=== PATIENT | male | born 1960 | race Caucasian/White ===

== ENCOUNTER → 2021-01-30 13:26 | Outpatient (CLI) | payer OTHER, SELFPAY ==
--- NOTE | ~2021-01-30 | XR_ITS ---
XR hip LT min 2V 01/30/2021 13:56 Indication: Left hip pain Procedure: 2 views left hip Comparison: No prior studies for comparison. Findings: There is severe osteoarthritis of the left hip with remodeling of the femoral head. There a re subchondral cyst formation and marginal osteophytosis. No fracture or traumatic malalignment. Impression: 1: Severe osteoarthritis of the left hip. Reviewed, dictated and finalized at location B. Impression: 1: Severe osteoarthritis of the left hip.
--- NOTE | ~2021-01-30 | XR_ITS ---
XR knee LT min 4V 01/30/2021 13:56 Indication: Left hip pain Procedure: 4 views left knee Comparison: No prior studies for comparison. Findings: Moderate tricompartment osteoarthritis of the left knee. No significant soft tissue abnorma lity. No joint effusion. No lytic or blastic lesions. Impression: 1: Moderate osteoarthritis of the left knee. Reviewed, dictated and finalized at location B. Impression: 1: Moderate osteoarthritis of the left knee.
== END ==
PROVIDERS: PCP Family Medicine Adolescent Medicine; Visit Provider Family Medicine Adolescent Medicine
DX: M16.12 Unilateral primary osteoarthritis, left hip (principal)
CPT/HCPCS: 73502; 73564

== ENCOUNTER 2021-12-02 11:51 | Outpatient (CLI) | payer OTHER, SELFPAY ==
--- NOTE | 2021-12-02 13:16 | ECG_ITS ---
Measurements Intervals [place] Rate: 85 P: 21 PA: 136 QRS: 13 QRSD: 96 T: 26 QT: 363 QTc: 432 Interpretive Statements SINUS RHYTHM WITH SINUS ARRHYTHMIA NORMAL ECG NO PREVIOUS ECG AVAILABLE FOR COMPARISON Electronically Signed On 12-02-2021 14:12:18 COVER MAKING MACHINE OPERATOR by Kieran Angelo M.D.
[2021-12-02 13:50] LABS: Basophils Percent Auto 0.7 % (0.2-1.2); Eosinophils Absolute Auto 0.2 K/mm3 (0-0.3); Eosinophils Percent Auto 3.4 % (0-4.4); Hematocrit 44.2 % (42.0-52.0); Hemoglobin 15.3 g/dL (14.0-18.0); Immature Granulocyte Absolute 0.02 K/mm3 (0.00-0.031); Immature Granulocyte Percent A 0.4 % (0-0.5); Lymphocytes Absolute Auto 1.35 K/mm3 (0.9-3.2); Lymphocytes Percent Auto 30.3 % (18.3-44.2); Mean Corpuscular HGB Conc 34.6 g/dl (32-36); Mean Corpuscular Hemoglobin 30.5 pg (26-34); Mean Platelet Volume 10.1 fl (7.4-10.4); Monocytes Absolute Auto 0.5 K/mm3 (0.1-0.6); Monocytes Percent Auto 10.3 % (2.6-8.5); Neutrophils Absolute Auto 2.4 K/mm3 (1.3-6.7); Neutrophils Percent Auto 54.9 % (45.5-73.1); Platelet Count Result 191 k/mm3 (150-375); Red Blood Count 5.02 M/mm3 (4.6-6.20); Red Cell Distribution Width 11.8 % (11.5-14.5); White Blood Count 4.5 K/mm3 (4.5-10.0)
[2021-12-02 13:59] LABS: Albumin Level 4.7 g/dL (3.5-5.1); Anion Gap 10 mmol/L (8-16); Blood Urea Nitrogen 20 mg/dL (9-20); Carbon Dioxide 25 mmol/L (22-30); Chloride 105 mmol/L (98-107); Estimated Glomerular Filt Rate > 60; Glucose 109 mg/dL (65-110); Potassium 4.4 mmol/L (3.4-5.0); Sodium 140 mmol/L (137-145)
[2021-12-02 14:21] LABS: Urine Cotinine NEGATIVE
[2021-12-02 14:42] LABS: Hemoglobin A1C 5.5 % (<5.7)
== END 2021-12-02 11:52 | disposition home or self-care (01) ==
LOC: ANHSURGERY 11:54
PROVIDERS: PCP Family Medicine Adolescent Medicine; Visit Provider Orthopaedic Surgery
DX: M16.12 Unilateral primary osteoarthritis, left hip (principal); Z01.818 Encounter for other preprocedural examination
CPT/HCPCS: 80048; 80307; 82040; 83036; 85025; 87070; 93005

== ENCOUNTER 2021-12-21 00:49 | Day surgery (SDC) | payer OTHER, SELFPAY ==
[2021-12-02 12:26] VITALS: BP 120/72; PULSE 88; RESP 18; TEMP 36.8; O2SAT 98; BMI 36.0
--- NOTE | 2021-12-02 12:44 | PC.NURSE ---
Report to the Outpatient Waiting Room, entrance under the green pavilion located off [facility], at time __6:00AM on date _12/21/21 . OR Time: __7:30AM . - You and your visitor will be asked a series of questions to screen for COVID 19 for your protection. - A mask is required within the hospital. Preoperative COVID Testing Requirements: No COVID Test needed if: (proof is required; if not received patient will have Rapid Test prior to entry) - Patient has received COVID Vaccine at least 14 days prior to procedure date or - Patient has positive COVID test result within last 90 days of surgery date. COVID Test needed if above criteria is not met If not COVID vaccinated a COVID test must be conducted within 72 hours of surgery and patient is asked to isolate self from time of testing until procedure. You will go to the [facility] for your COVID testing. The [facility] site is located at the corner of [address] [facility]. You will only be called if COVID results are positive and your surgeon may reschedule your elective surgery date. Patients may have clear liquids (water, carbonated beverages, clear teas, apple juice) until 3 hours prior to surgery with a maximum of 20 ounces. - No food from midnight until time of surgery - Infants may have breast milk until 4 hours before surgery, formula 6 hours prior to surgery. - Children will be allowed to drink immediately following surgery. If applicable, please bring a bottle or sippy cup to assist with drinking. Juice, water, soda, and popsicles are readily available. For infants on formula, please bring formula the day of surgery. Pacifiers are allowed. Take the following medications with a SIP of water the morning of surgery: ___NONE Medications to discontinue per physician COUMADIN 5 DAYS PRE-OP, 12/16/21, ALL VITAMINS/SUPPLEMENTS 3 DAYS PRE-OP, 12/18/21 Date to take last dose Please no make-up, nail [facility], hairspray, perfume, deodorant, or body powder the day of surgery. No jewelry (including any body piercings) or valuables the day of surgery, leave them at home. Please take a shower or bath the night before, or the morning of, surgery with an antibacterial soap. Wear comfortable, loose fitting clothing. Children are encouraged to wear pajamas. - Jewelry must be removed prior to entering the operating room. Rings and piercings that are not removed may be cut off. - The hospital will not accept responsibility for valuables. - Please leave all valuables, including medications, at home the day of surgery. If you are going home after surgery, a licensed deliver driver must drive you home. - NO public transportation without another adult. - We recommend that an adult stay with you for 24 hours following discharge. - We also recommend that you do not drive, make important decision, drink alcoholic beverages, or take any drugs that were not prescribed by your health care provider for at least 24 hours after your discharge time. For Pediatric surgeries, we recommend two adults accompany the child home (only one inside the building at this time). One visitor will be allowed to accompany the patient into the hospital. Patients visitor will be instructed to remain with patient at all times or leave the building. We will allow the visitor to come back to the postoperative area when patient is ready. Follow any additional instructions given to you from your surgeon. Telephone instructions given to ___PATIENT and asked if any additional questions and then verbalized understanding. Patient advised to call surgeon office or pre surgery nurse liaison [phone] if any additional questions.
--- NOTE | 2021-12-18 10:09 | PM.IMHP ---
H&P: HPI History of Present Illness Date/Time: 12/18/21 10:09 61-year-old male patient of Dr. Davis who presents today for a left total hip arthroplasty anterior approach. He has been having pain in his hip for years. It has progressively been worsening. Most the pain is in the anterior lateral. He has had to put off hip replacement surgery due to being overweight. Also he had a spontaneous DVT and bilateral pulmonary embolus in March 2021. at this point patient has gotten his weight down so that his BMI is under 40. it is also felt that he is far enough out from his spontaneous pulmonary embolus and DVT that it would be safe to do surgery at this point. Patient has advanced type 1 arthritis in the left hip with flattening of the femoral head and pronounced cystic changes in the femoral head as well as acetabulum. Chief Complaint: Left hip DJD Review of Systems Review of Systems: All systems reviewed & are unremarkable except as noted in HPI and below PMFSH Past Medical History Medical History Deep vein thrombosis 03/23 History of pulmonary embolism History of pulmonary embolism Pulmonary embolism 03/23 Family History Family History Father Acute myocardial infarction Age 70 Heart disease Mother Breast cancer Sibling Heart disease Other Depression Hypertension Social History Social History Smoking status: Never smoker Second hand tobacco smoke exposure: No Alcohol intake: never Substance use: never Substance use type: does not use Gender identity (if verbalized by the patient): Male Sexual Orientation (if Verbalized by the Patient): Straight or Heterosexual Spiritual care concerns: No Agree to blood products: Yes Meds Home Medications and Allergies Home Medications Medication Instructions Recorded Confirmed Type celecoxib 200 mg capsule 200 mg PO DAILY 11/02/21 12/02/21 History clonazepam 1 mg tablet 1 mg PO BID 11/02/21 12/02/21 History lisinopril 10 mg tablet 10 mg PO QAM 11/02/21 12/02/21 History warfarin 5 mg tablet 7.5 mg PO QPM tablet 11/02/21 12/02/21 History acetaminophen 500 mg PO Q6H PRN 12/02/21 12/02/21 History cholecalciferol (vitamin D3) 50 mcg PO DAILY 12/02/21 12/02/21 History hydrocodone-acetaminophen 1 tablet PO TID PRN 12/02/21 12/02/21 History triamcinolone acetonide 1 applic TOPICAL BID PRN 12/02/21 12/02/21 History Allergies Allergy/AdvReac Type Severity Reaction Status Date / Time No Known Allergies Allergy Unverified 12/02/21 12:11 Exam Narrative: 61-year-old male alert pleasant. He is 5 ft 9 and 249 lb his BMI is 36.8. His left hip range of motion is from 10-80 degrees. His rotation is fixed at 10? of external rotation. Any range of motion causes him anterior lateral hip pain. Stinchfield maneuver causes him the same moderately severe anterior lateral hip pain. He has normal abduction strength in lateral position. No tenderness over the greater trochanter. 2+ dorsalis pedis and posterior artery pulse. Normal sensation. No edema in either lower extremity. Does walk with a pronounced limp. Resp: Auscultation: clear to auscultation bilaterally Cardio: Rate: regular rate Rhythm: regular rhythm Assessment and Plan Additional Plan 61-year-old male who has severe arthritis of left hip with rather severe symptoms on a daily basis. Patient feels ready to proceed with total hip arthroplasty. Surgical procedure as well as the risks and complications were discussed in detail all questions were answered and we will proceed. Patient will see Dr. bhaskar zaldivar for pre-surgical clearance. Patient has seen a a auxiliary who has recommended the patient stop his Coumadin 1 week prior to surgery and then use bridging Lovenox. We will resume his Coumadin postoperatively as well as bridge i
[2021-12-21] VITALS (16 sets, daily range): BP systolic 97–133; BP diastolic 53–79; PULSE 61–104; RESP 14–20; TEMP 36–36.6; O2SAT 95–100
--- NOTE | ~2021-12-21 | XR_ITS ---
. EXAMINATION: XR surgery orthopedic DATE: 12/21/2021 11:10 INDICATION: Intraoperative evaluation during left total hip arthroplasty TECHNIQUE: Frontal view of the left hip was obtained. COMPARISON: None. FINDINGS: Intraoperative image during a left total hip arthroplasty demonstrate placement of an acetabular comp onent which is fixed with at least a single screw. Subsequent images demonstrate completion of the ar throplasty with placement of a noncemented femoral component. Portions of the pelvis are excluded fro m the [id number]. No fractures in the visualized bones. Expected postoperative gas in the surround ing soft tissues. IMPRESSION: 1. Expected appearance during left total hip arthroplasty. Reviewed, dictated and finalized at location A.
--- NOTE | ~2021-12-21 | XR_ITS ---
EXAMINATION: XR hip LT 1V w AP pelvis DATE: 12/21/2021 11:31 INDICATION: Postoperative evaluation following left total hip arthroplasty TECHNIQUE: Anteroposterior and lateral views of the left hip were obtained. COMPARISON: Intraoperative radiograph dated 12/21/2021 FINDINGS: Interval placement of a left total hip arthroplasty which appears well seated in near anatomic alignm ent. At least moderate right hip osteoarthritis. Surgical drain and expected subcutaneous gas in the postoperative bed. No fractures identified. IMPRESSION: 1. Left total hip arthroplasty, negative for postoperative purposes. Reviewed, dictated and finalized at location A.
[2021-12-21] MEDS: ACETAMINOPHEN 500 MG TABLET 1000 MG PO ×2 (06:25→17:50)
[2021-12-21] MEDS: LACTATED RINGERS 1,000 ML 30 ML IV CONT ×2 (06:45→11:37)
[2021-12-21 06:54] LABS: INR 1.1; Partial Thromboplastin Time 25.8 SECONDS (22.3-36.8); Prothrombin Time 13.5 Seconds (11.1-14.7)
[2021-12-21] MEDS: TRANEXAMIC ACID 1,000MG/ISO100 1,000 MG/100 ML BAG 200 MG IVPB (06:59)
--- NOTE | 2021-12-21 07:14 | WPDHPUPDATE1 ---
History and Physical Update Update Date/Time: 12/21/21 07:14 History and Physical has been reviewed, including an updated exam of the patient. There are NO changes in the patient's condition. Risks, benefits, and alternatives have been discussed and questions answered. Patient agrees to proceed with procedure.
--- NOTE | 2021-12-21 07:22 | WPDANESEPPF ---
Anes - Initial Pre Proc Eval Procedure: Operation Date: 12/21/21 07:30 Proposed Procedures p Left Total Hip Arthroplasty Anterior Approach - Von Alarcon MD Date/Time: 12/21/21 07:22 Surgeon: Von Alarcon MD Pre Op Diagnosis: oa left hip Patient Data Age: 61 Gender: M Height: 1.77 m Weight: 111 kg Last Vital Signs Temp 97.3 F L 12/21/21 06:44 Pulse 84 12/21/21 06:44 Resp 16 12/21/21 06:44 BP 124/79 12/21/21 06:44 Pulse Ox 99 12/21/21 06:44 Allergies Allergy/AdvReac Type Severity Reaction Status Date / Time No Known Allergies Allergy Unverified 12/21/21 06:03 Home Medications Medication Instructions Recorded Confirmed Type celecoxib 200 mg capsule 200 mg PO DAILY 11/02/21 12/21/21 History clonazepam 1 mg tablet 1 mg PO BID 11/02/21 12/21/21 History lisinopril 10 mg tablet 10 mg PO QAM 11/02/21 12/21/21 History warfarin 5 mg tablet 7.5 mg PO QPM tablet 11/02/21 12/21/21 History acetaminophen 500 mg PO Q6H PRN 12/02/21 12/21/21 History cholecalciferol (vitamin D3) 50 mcg PO DAILY 12/02/21 12/21/21 History hydrocodone-acetaminophen 1 tablet PO TID PRN 12/02/21 12/21/21 History triamcinolone acetonide 1 applic TOPICAL BID PRN 12/02/21 12/21/21 History enoxaparin 150 mg SUBCUT QAM 12/21/21 12/21/21 History Laboratory Tests 12/21/21 12/21/21 06:38 06:38 PT 13.5 Seconds Seconds (11.1-14.7) INR 1.1 APTT 25.8 SECONDS SECONDS (22.3-36.8) Blood Type A Positive Antibody Screen Pending Patient hx anesthesia problems: none Family hx anesthesia problems: none Results Review: All pre-operative results and documents have been reviewed as part of the pre-operative evaluation. [facility] Past Medical History Medical History Deep vein thrombosis 03/23 History of pulmonary embolism History of pulmonary embolism Pulmonary embolism 03/23 Family History Family History Father Acute myocardial infarction Age 70 Heart disease Mother Breast cancer Sibling Heart disease Other Depression Hypertension Social History Social History Smoking status: Never smoker Second hand tobacco smoke exposure: No Alcohol intake: never Substance use: never Substance use type: does not use Living arrangements: alone Gender identity (if verbalized by the patient): Male Sexual Orientation (if Verbalized by the Patient): Straight or Heterosexual Spiritual care concerns: No Agree to blood products: Yes Anes - Eval Final PreProcedure Day of Procedure 12/21/21 07:22 Patient weight: obese Heart: regular rate and rhythm Lungs: clear to auscultation Airway: Mallampati scale class III Neurological: alert and oriented Last oral intake: >/= 8 hours ASA classification: III Emergent: no Anesthetic plan: proceed Anesthesia type and monitoring: general ETT and standard monitoring Results Review: All pre-operative results and documents have been reviewed as part of the pre-operative evaluation. Informed Consent: The patient's anesthetic plan and its attendant risks and benefits were discussed with the patient/family/POA. Questions were solicited and answers provided to the satisfaction of the patient/family/POA.
[2021-12-21] MEDS: ceFAZolin 2 GM/D5W 50 ML 2 GM/50 ML BAG IVPB (07:32)
[2021-12-21] MEDS: ceFAZolin SODIUM 1 GM VIAL 2 GM IV PUSH (11:00)
[2021-12-21] MEDS: TRANEXAMIC ACID 1,000 MG/10 ML AMPUL 1000 MG IV PUSH (11:04)
--- NOTE | 2021-12-21 11:54 | W.PM.PROC2 ---
Procedure Note - Detailed Date of Procedure 12/21/21 Pre-op Diagnosis oa left hip Post-op Diagnosis Same Procedure Performed Direct anterior approach left total hip arthroplasty Surgeon Von Alarcon MD Wastewater Supervisor Cain Anesthesia General Description of Procedure Patient brought to the operating room and general anesthesia was administered. He had his feet padded and the traction boots applied [facility] and the left hip prepped and draped usual fashion. We did use and 3 in silk tape on the abdomen to shift the pannus to the right little bit. His skin looks fine. He received 2 g of Ancef weight based vancomycin 1 g of tranexamic acid preoperatively. SCDs were applied to the calves and they were running throughout the procedure. A 11 cm longitudinal incision was made starting lateral to the ASIS about 2.5 cm lateral. Dissection was carried down the fascia of the tensor fascia azalia which was longitudinally incised elevated off the anterior 1/2 the TFL muscle. Interval between TFL and rectus femoris developed. Crossing branches of ascending lateral femoral circumflex vessels were identified and ligated with suture divided. The anterior capsule retractor was placed. The hip was abducted internally rotated the gluteus minimus elevated off the lateral capsule. Inverted T-shaped arthrotomy was utilized and a femoral neck osteotomy made according to preoperative templating. The femoral head measured 53.5 mm diameter. There was severe marginal osteophyte formation on the femoral head and around the acetabulum. The hip was externally rotated extended and the interval between conjoined tendon piriformis was incised which allowed the piriformis to flipped posteriorly and a little bit a recession of the conjoined tendon. With the leg back horizontal external rotation the acetabulum was exposed light traction applied. We medialized with a 44 Reamer and then reamed up gradually to a 53. The 53 trial fit nicely but the periphery of the shell was uncovered circumferentially and we reamed up to 55 mm which gave much more coverage circumferentially around the trial with a snug fit. We lightly reamed with the 56 at the periphery and impacted the 56 pinnacle cup which we were able to seat fully at 40? of abduction and proper anteversion. The shell was approximally flush with the posterior rim of the acetabulum and was will medial to a very large anterior inferior osteophyte. An excellent Press-Fit was achieved. We did place a screw in the ilium additionally and the 36 inner diameter liner was fully seated. The leg was externally rotated extended with the table hook elevating the femur and the femur broached to a size 5 which had just a tiny bit of wiggle. We trialed with the 8.5 head standard neck. This lengthened the leg a little more than our preoperative plan which was to lengthen the leg about 5 or 6 mm to restore the lost cartilage and bone loss due to wear. I could see that the 5 stem was undersized and we did not have enough offset. We broached up to a size 7 which was a very solid fit and we countersunk this about 3 more mm. On trialing the +5 neck was too loose. The 8.5 neck I felt was stable with a standard neck but it length and again a little bit more than I had planned and did not seem to restore adequate offset. We switched to the high offset neck trialed with the 1.5 head and this was too loose we trialed with the 5 head and this gave us appropriate stability with ample shock but no instability. This improved the leg length we were trying to achieve which I felt matched our preoperative plan well. We calcar planed the neck with a planer and saw and after confirming complete torsional stability of the broach we placed the Actis size 7 high offset stem which seated fully. We applied the 5 mm by 36 mm ceramic head on the clean and dried trunnion and the wound was again thoroughly irrigated with antibiotic solution and
[2021-12-21 11:55] LABS: Glucose Point of Care 157 mg/dl (65-105)
[2021-12-21] MEDS: fentaNYL CITRATE INJ (*CRX) 100 MCG/2 ML VIAL 25 MCG IV PUSH ×5 (11:59→12:47)
[2021-12-21] MEDS: PROPARACAINE HCL 0.5% 15 ML OPHTH SOLN 1 DROP EACH EYE (12:38)
[2021-12-21] MEDS: oxyCODONE HCL (*CRX) 5 MG TAB IR PO ×4 (13:32→22:17)
[2021-12-21] MEDS: ONDANSETRON INJ 4 MG/2 ML VIAL IV PUSH (13:32)
[2021-12-21] MEDS: SODIUM CHLORIDE 0.9% IV 1,000 ML 125 ML IV CONT (13:33)
--- NOTE | 2021-12-21 13:41 | ADMGEN ---
This patient, Albin Cohn, was admitted to Medical Room 244-01. Patient/family oriented to hospital policies and general routines including ID bracelet, bed and alarms, visiting hours, pain management, procedures, bathroom and other care routines, personal items, smoking policy, room service/diet, and visiting hours. Information on how to activate the Rapid Response Team has been discussed. Patient/Family are encouraged to report perceived risks to care and to ask questions if they do not understand what they are told or what they should do.
--- NOTE | 2021-12-21 13:49 | PCOTNOTE ---
Attempted OT evaluation, despite education on benefits of participating with therapy, patient reports feeling to weak right now to participate. Will attempt at later time, RN present.
--- NOTE | 2021-12-21 14:24 | PCPTNOTE ---
Attempted PT evaluation, despite education on benefits of participating with therapy, patient reports feeling to weak right now to participate. Will attempt at later time, RN present.
[2021-12-21] MEDS: SENNA/DOCUSATE SODIUM TABLET 2 TAB PO (16:28)
[2021-12-21] MEDS: DICLOFENAC SODIUM 0.1% OPHTH SOLN 2.5 ML BOTTLE 1 DROP EACH EYE ×2 (16:29→20:39)
--- NOTE | 2021-12-21 18:00 | WPDCN ---
Assessment and Plan Assessment and plan (1) Arthritis of left hip: Code(s): M16.12 - Unilateral primary osteoarthritis, left hip Status: Acute Assessment and Plan: Postoperative day 0 status post direct anterior approach left total hip arthroplasty. Check hemoglobin and hematocrit in the a.m. Wound care, pain control, and DVT prophylaxis will be deferred to Dr. Alarcon. (2) Essential (primary) hypertension: Code(s): I10 - Essential (primary) hypertension Status: Acute Assessment and Plan: Blood pressures were reviewed and they are stable postoperatively. Continue antihypertensives and monitor daily. (3) Type 2 diabetes mellitus: Code(s): E11.9 - Type 2 diabetes mellitus without complications Status: Acute Assessment and Plan: No longer on metformin after losing weight. Check fasting glucose and A1c in the morning. (4) Anxiety: Code(s): F41.9 - Anxiety disorder, unspecified Status: Acute Assessment and Plan: Continue clonazepam. (5) History of venous thromboembolism: Code(s): Z86.718 - Personal history of other venous thrombosis and embolism Status: Acute Assessment and Plan: The patient had DVT and pulmonary embolism in March 2021, of felt to be safe enough to be off of anticoagulation for this procedure. DVT prophylaxis deferred to primary service. (6) Nocturia: Code(s): R35.1 - Nocturia Status: Acute Assessment and Plan: Patient states he gets up almost every hour to urinate at nighttime. It sounds as though he drinks quite a bit of fluid prior to going to bed and we discussed limiting his fluid intake. Given his age she may be developing enlarged prostate and he was told to discuss this with his primary care provider. Postoperatively we will monitor his I/O closely to ensure there is no concerns for retention. Additional Plan Thank you for allowing us to participate in this patient's care. Please do not hesitate to contact us with any questions. Supervising physician for this medical consultation is Dr. Naeem Cole. HPI Data of Consult Date/Time: 12/21/21 18:00 Requesting Physician: Von Alarcon MD Primary Care Provider: Jas De Los Santos MD Reason for consult: Postoperative medical management. Consult Narrative Narrative: This is a 61-year-old male with history of arthritis, DVT and pulmonary embolism in summer 2020, diet-controlled diabetes, and hypertension whom the hospitalist service has been consulted for management of his medical conditions postoperatively. He has had longstanding pain in his left hip that has gotten progressively worse over the years. Despite losing weight and conservative outpatient treatment, his pain has persisted and thus he elected for replacement today. His surgery was performed under general anesthesia with no immediate complications documented and an estimated blood loss of 550 mL. At the time my evaluation he is resting comfortably and rates his pain 4/10. He denies paresthesias, skin color, temperature changes distal to the surgical site. He also denies postoperative fever, chills, chest pain, shortness breast, nausea, and vomiting. Review of Systems Review of Systems: Twelve systems were reviewed. No recent cold or flu symptoms. He denies cardiac and pulmonary disease. No exertional chest pain or shortness of breath. Denies history of sleep apnea or concerns for such. His most recent hemoglobin A1c was 4.9% per patient report and he has been off of metformin for quite some time. He does not check his glucose at home. He reports nocturia, getting up almost every hour at nighttime. Sometimes it takes him a bit to start his stream but he states that is with the same for says it is always been. He feels as though he is emptying his bladder completely. No dysuria,
[2021-12-21] MEDS: clonazePAM (*CRX) 0.5 MG TABLET 1 MG PO (20:35)
[2021-12-21] MEDS: ENOXAPARIN 30 MG/0.3 ML SYRINGE SUB-Q (20:38)
[2021-12-21] MEDS: FAMOTIDINE 20 MG TABLET PO (20:40)
[2021-12-22] MEDS: oxyCODONE HCL (*CRX) 5 MG TAB IR PO ×5 (00:36→14:13)
[2021-12-22] MEDS: ACETAMINOPHEN 500 MG TABLET 1000 MG PO ×3 (00:37→14:13)
[2021-12-22 03:52] VITALS: BP 114/66; PULSE 89; RESP 20; TEMP 36.2; O2SAT 99
[2021-12-22] MEDS: MORPHINE SULFATE (*CRX) 2 MG/ML INJ IV PUSH (05:13)
[2021-12-22] MEDS: DICLOFENAC SODIUM 0.1% OPHTH SOLN 2.5 ML BOTTLE 1 DROP EACH EYE ×2 (05:15→14:12)
[2021-12-22 05:56] LABS: Basophils Percent Auto 0.1 % (0.2-1.2); Eosinophils Percent Auto 0.1 % (0-4.4); Hematocrit 33.9 % (42.0-52.0); Hemoglobin 11.5 g/dL (14.0-18.0); Immature Granulocyte Absolute 0.06 K/mm3 (0.00-0.031); Immature Granulocyte Percent A 0.7 % (0-0.5); Lymphocytes Absolute Auto 0.81 K/mm3 (0.9-3.2); Lymphocytes Percent Auto 9.3 % (18.3-44.2); Mean Corpuscular HGB Conc 33.9 g/dl (32-36); Mean Corpuscular Hemoglobin 29.9 pg (26-34); Mean Corpuscular Volume 88.3 fl (80-100); Mean Platelet Volume 10.2 fl (7.4-10.4); Monocytes Absolute Auto 1.1 K/mm3 (0.1-0.6); Monocytes Percent Auto 12.6 % (2.6-8.5); Neutrophils Absolute Auto 6.7 K/mm3 (1.3-6.7); Neutrophils Percent Auto 77.2 % (45.5-73.1); Platelet Count Result 135 k/mm3 (150-375); Red Blood Count 3.84 M/mm3 (4.6-6.20); Red Cell Distribution Width 11.9 % (11.5-14.5); White Blood Count 8.7 K/mm3 (4.5-10.0)
[2021-12-22 06:05] LABS: Anion Gap 4 mmol/L (8-16); Blood Urea Nitrogen 17 mg/dL (9-20); Calcium 8.4 mg/dL (8.4-10.2); Carbon Dioxide 28 mmol/L (22-30); Chloride 103 mmol/L (98-107); Estimated CRCL calculation 86 ml/min; Estimated Glomerular Filt Rate > 60; Glucose 127 mg/dL (65-110); Magnesium 1.9 mg/dL (1.6-2.3); Potassium 4.5 mmol/L (3.4-5.0); Sodium 135 mmol/L (137-145)
--- NOTE | 2021-12-22 06:19 | PM.PNORT ---
Progress Note: A&P Additional Plan Patient is postoperative day 1. After total hip replacement left hip. He is afebrile with stable vital signs. His O2 sats have been 97- 100%. Hemoglobin 11.5 indicates mild acute blood loss anemia. Platelets are mildly diminished at 135,000 down from 191,000 hundred ninety one thousand preoperatively consistent with consumption. Since he is on Lovenox as platelets will be followed. He received his 1st dose of Lovenox 30 mg q.12 hours last night at 9:00 p.m.. Our plan is to start his Coumadin tonight. His normal dose is 7.5 mg daily and we plan to give him 12.5 mg tonight and then 10 mg each evening until his INR is therapeutic at which time he will be resumed on his normal home dose of 7.5 mg daily. His Lovenox will be continued as bridging until he is therapeutic from his Coumadin because of his history of spontaneous DVT PE. Dr. Adams was consulted yesterday and hopefully he will be able to see the patient this morning. I will defer to his recommendations for DVT prophylaxis if they are different than the above-stated plan. Wound is fine. He got up numerous times during the night to urinate which is common for him. He has bit more pain in the proximal anterolateral right lateral thigh this morning which is understandable and we will address this with pain medication as ordered. He will have physical therapy again this morning and will plan on discharge with home health care this afternoon if he is doing well. I would like Dr. Adams to see him before discharge for any additional recommendations for DVT prophylaxis. Subjective Subjective Date/Time Seen: 12/22/21 06:19 Objective Data Vital Signs Vital Signs: Vital Signs - 24 hr 12/21/21 06:44 12/21/21 11:37 12/21/21 11:50 Temperature 36.3 C L 36.1 C L Pulse Rate 84 73 68 Respiratory Rate 16 16 14 Blood Pressure 124/79 126/62 123/77 Pulse Oximetry 99 98 100 12/21/21 12:05 12/21/21 12:20 12/21/21 12:35 Temperature Pulse Rate 67 65 72 Respiratory Rate 14 18 18 Blood Pressure 123/69 121/69 116/67 Pulse Oximetry 100 97 97 12/21/21 12:50 12/21/21 13:00 12/21/21 13:19 Temperature 36.0 C L 36.6 C Pulse Rate 71 61 61 Respiratory Rate 14 16 20 Blood Pressure 115/60 116/67 106/62 Pulse Oximetry 98 96 100 12/21/21 13:35 12/21/21 14:05 12/21/21 15:05 Temperature 36.6 C 36.6 C 36.4 C L Pulse Rate 70 75 81 Respiratory Rate 20 20 20 Blood Pressure 107/60 109/60 97/53 L Pulse Oximetry 98 99 99 12/21/21 19:00 12/21/21 20:25 12/21/21 23:40 Temperature 36.6 C 36.6 C Pulse Rate 99 104 H 104 H Respiratory Rate 18 20 20 Blood Pressure 133/65 133/71 Pulse Oximetry 100 97 97 12/21/21 23:55 12/22/21 03:52 Temperature 36.4 C L 36.2 C L Pulse Rate 89 89 Respiratory Rate 20 20 Blood Pressure 114/68 114/66 Pulse Oximetry 95 99 Intake/Output Intake/Output: Intake & Output 12/19/21 12/20/21 12/21/21 12/22/21 23:59 23:59 23:59 23:59 Intake Total 1490 800 Output Total 5 2110 Balance 1485 -1310 Meds/Results Medications: Active Medications Generic Name Dose Route Start Last Admin Trade Name Freq PRN Reason Stop Dose Admin Acetaminophen 1,000 mg 12/21/21 18:00 12/22/21 05:15 Acetaminophen 500 Mg Tablet PO 1,000 mg Q6HR LUIS ALBERTO Administration Al Hydrox/Mg Hydrox/Simethicone 30 ml 12/21/21 11:34 Mag Hydrox/Al Hydrox/Simeth 30 Ml Udc PO Q6H PRN Indigestion Artificial Tears 1 drop 12/21/21 12:26 Artificial Tears Ophth Soln 15 Ml Bottle EACH EYE Q2H PRN Dry Eye(s) Celecoxib 200 mg 12/22/21 09:00 Celecoxib 200 Mg Capsule PO DAILY [facility] Cephalexin HCl 500 mg 12/22/21 12:00 Cephalexin 500 Mg Capsule PO Q6HR LUIS ALBERTO Clonazepam 1 mg 12/21/21 20:00 12/21/21 20:35 Clonazepam (*Crx) 0.5 Mg Tablet PO 1 mg 08,1999 [facility] Administration Diclofenac Sodium 1 drop 12/21/21 14:00 12/22/21 05:15 Diclofenac Sodium 0.1% Ophth Soln 2.5 Ml
--- NOTE | 2021-12-22 06:35 | PM.PNORT ---
Subjective Subjective Date/Time Seen: 12/22/21 06:35 Postop day 1 patient is alert pleasant. He is afebrile vital signs are stable. He had 1 bout of nausea immediately when he got up to the floor yesterday no emesis. Nausea is completely gone at this point. He has been on multiple times yesterday as well as overnight to the restroom. He has worked with therapy yesterday and walking well. He did require some morphine this morning to increased pain and most likely after the soft tissue block wore off. Has been taking oxycodone 5 mg 2 tablets every 4 hours is also on scheduled Tylenol. He will start on Celebrex this morning. We will plan to have patient work with physical therapy today if he continues to do well plan on sending him home. We will make sure that home health is set up to do her INR draws to start on . Patient's drain is out his incision is dry. Neurovascularly he is intact. Objective Data Vital Signs Vital Signs: Vital Signs - 24 hr 12/21/21 06:44 12/21/21 11:37 12/21/21 11:50 Temperature 36.3 C L 36.1 C L Pulse Rate 84 73 68 Respiratory Rate 16 16 14 Blood Pressure 124/79 126/62 123/77 Pulse Oximetry 99 98 100 12/21/21 12:05 12/21/21 12:20 12/21/21 12:35 Temperature Pulse Rate 67 65 72 Respiratory Rate 14 18 18 Blood Pressure 123/69 121/69 116/67 Pulse Oximetry 100 97 97 12/21/21 12:50 12/21/21 13:00 12/21/21 13:19 Temperature 36.0 C L 36.6 C Pulse Rate 71 61 61 Respiratory Rate 14 16 20 Blood Pressure 115/60 116/67 106/62 Pulse Oximetry 98 96 100 12/21/21 13:35 12/21/21 14:05 12/21/21 15:05 Temperature 36.6 C 36.6 C 36.4 C L Pulse Rate 70 75 81 Respiratory Rate 20 20 20 Blood Pressure 107/60 109/60 97/53 L Pulse Oximetry 98 99 99 12/21/21 19:00 12/21/21 20:25 12/21/21 23:40 Temperature 36.6 C 36.6 C Pulse Rate 99 104 H 104 H Respiratory Rate 18 20 20 Blood Pressure 133/65 133/71 Pulse Oximetry 100 97 97 12/21/21 23:55 12/22/21 03:52 Temperature 36.4 C L 36.2 C L Pulse Rate 89 89 Respiratory Rate 20 20 Blood Pressure 114/68 114/66 Pulse Oximetry 95 99 Intake/Output Intake/Output: Intake & Output 12/19/21 12/20/21 12/21/21 12/22/21 23:59 23:59 23:59 23:59 Intake Total 1490 800 Output Total 5 2110 Balance 1485 -1310 Meds/Results Medications: Active Medications Generic Name Dose Route Start Last Admin Trade Name Freq PRN Reason Stop Dose Admin Acetaminophen 1,000 mg 12/21/21 18:00 12/22/21 05:15 Acetaminophen 500 Mg Tablet PO 1,000 mg Q6HR LUIS ALBERTO Administration Al Hydrox/Mg Hydrox/Simethicone 30 ml 12/21/21 11:34 Mag Hydrox/Al Hydrox/Simeth 30 Ml Udc PO Q6H PRN Indigestion Artificial Tears 1 drop 12/21/21 12:26 Artificial Tears Ophth Soln 15 Ml Bottle EACH EYE Q2H PRN Dry Eye(s) Celecoxib 200 mg 12/22/21 09:00 Celecoxib 200 Mg Capsule PO DAILY LUIS ALBERTO Cephalexin HCl 500 mg 12/22/21 12:00 Cephalexin 500 Mg Capsule PO Q6HR LUIS ALBERTO Clonazepam 1 mg 12/21/21 20:00 12/21/21 20:35 Clonazepam (*Crx) 0.5 Mg Tablet PO 1 mg 08,1999 LUIS ALBERTO Administration Diclofenac Sodium 1 drop 12/21/21 14:00 12/22/21 05:15 Diclofenac Sodium 0.1% Ophth Soln 2.5 Ml Bottle EACH EYE 12/25/21 13:59 1 drop Q8HR LUIS ALBERTO Administration Enoxaparin Sodium 30 mg 12/21/21 21:00 12/21/21 20:38 Enoxaparin 30 Mg/0.3 Ml Syringe SUB-Q 30 mg Q12HR LUIS ALBERTO Administration Famotidine 20 mg 12/21/21 21:00 12/21/21 20:40 Famotidine 20 Mg Tablet PO 20 mg Q12HR LUIS ALBERTO Administration Fentanyl Citrate 25 mcg 12/21/21 07:23 12/21/21 12:47 Fentanyl Citrate Inj (*Crx) 100 Mcg/2 Ml Vial IV PUSH 25 mcg Q2M PRN Administration Pain Hydroxyzine HCl 50 mg 12/21/21 11:34 Hydroxyzine Hcl 25 Mg Tablet PO Q4H PRN Itching Lactated Ringer's 1,000 mls @ 30 mls/hr 12/21/21 07:25 12/21/21 11:37 Lr - Lactated Ringers Iv IV CONT Infused .Q24H LUIS ALBERTO Infusion Lactated Rin
--- NOTE | 2021-12-22 06:42 | PM.DS ---
DS: Admitting Diagnosis Discharge Date 12/21 Admitting Diagnosis Left hip DJD DS: Summary Hospital Course Hospital Course: Stable Time Spent with Patient Time attestation: Total time spent providing and/or coordinating discharge services: 61-year-old male who underwent left total hip arthroplasty anterior approach on 12/21. Underwent the procedure without complications. Postoperatively he has been afebrile vital signs are stable. Neurovascularly he is intact. His incision is dry he has a light dressing over it. He is weight-bearing as tolerated. He was walking the day of surgery physical therapy was up multiple times overnight going to the restroom is comfortable. 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 He has been taking oxycodone 5 mg 1 or 2 every 4 hours he is also on scheduled Tylenol. We also have him on Celebrex 200 mg daily for the 1st 10 days. Patient got his 1st dose of Lovenox at 9:00 a.m. p.m. on the day of surgery. We will keep him on the 30 mg Lovenox b.i.d. until his Coumadin is therapeutic. He can be discharged home on 12/22. Patient was advised to take 10 mg of Coumadin tonight and tomorrow night. We will have home health set up to draw an INR on . They will also draw CBC. He did have a mild drop in his platelets so we will recheck a CBC to check platelet count on as well. Once his Coumadin is therapeutic we will stop Lovenox. Patient was advised to keep the leg elevated at home prevent swelling. He will also go home on a 12 day course of Keflex. Patient will also be on MiraLax and Senokot for constipation. He was advise any questions or concerns he is to call the office otherwise will see him at his appointment dates. DS: Data Data Completed and Pending Labs on day of discharge: Labs from last 24 hours 12/22/21 12/22/21 12/21/21 05:23 05:23 11:40 WBC 8.7 RBC 3.84 L Hgb 11.5 L D Hct 33.9 L MCV 88.3 MCH 29.9 MCHC 33.9 RDW 11.9 Plt Count 135 L MPV 10.2 Immature Gran % (Auto) 0.7 H Neut % (Auto) 77.2 H Lymph % (Auto) 9.3 L [place] % (Auto) 12.6 H Eos % (Auto) 0.1 Baso % (Auto) 0.1 L Lymph # (Auto) 0.81 L [place] # (Auto) 1.1 H Eos # (Auto) 0.0 Baso # (Auto) 0.0 Abs Immat Gran (auto) 0.06 H Absolute Neuts (auto) 6.7 Absolute Nucleated RBC 0.0 Nucleated RBC % 0.0 PT INR APTT Sodium 135 L Potassium 4.5 Chloride 103 Carbon Dioxide 28 Anion Gap 4 L BUN 17 Creatinine 1.00 Estim Creat Clear Calc 86 Estimated GFR > 60 Glucose 127 H POC Capillary Glucose 157 H Calcium 8.4 Magnesium 1.9 Blood Type Antibody Screen 12/21/21 12/21/21 06:38 06:38 WBC RBC Hgb Hct MCV MCH MCHC RDW Plt Count MPV Immature Gran % (Auto) Neut % (Auto) Lymph % (Auto) [place] % (Auto) Eos % (Auto) Baso % (Auto) Lymph # (Auto) [place] # (Auto) Eos # (Auto) Baso # (Auto) Abs Immat Gran (auto) Absolute Neuts (auto) Absolute Nucleated RBC Nucleated RBC % PT 13.5 INR 1.1 APTT 25.8 Sodium Potassium Chloride Carbon Dioxide Anion Gap BUN Creatinine Estim Creat Clear Calc Estimated GFR Glucose POC Capillary Glucose Calcium Magnesium Blood Type A Positive Antibody Screen Negative Discharge Plan Discharge Patient Disposition: Home, Self-Care Discharge Instructions: ANEESH FELDMAN M.D [facility], [address] [address] POST-OPERATIVE DISCHARGE INSTRUCTIONS ANTERIOR TOTAL HIP ARTHROPLASTY 1. Move toes/feet up and down every hour while awake. 2. Be up walking every hour while awake. 3. Use cane in hand opposite of side of hip surgery or walker as comfort allows. Avoid sitting in a chair unless eating, receiving visitors or using the toilet. 4. When resting, lie on back with leg
[2021-12-22] MEDS: polyethylene glycoL 3350 17 GM POWD.PACK PO (08:06)
[2021-12-22] MEDS: ENOXAPARIN 30 MG/0.3 ML SYRINGE SUB-Q (08:06)
[2021-12-22] MEDS: FAMOTIDINE 20 MG TABLET PO (08:07)
[2021-12-22] MEDS: clonazePAM (*CRX) 0.5 MG TABLET 1 MG PO (08:07)
[2021-12-22] MEDS: CHOLECALCIFEROL 1,000 UNITS TABLET 2000 UNITS PO (08:07)
[2021-12-22] MEDS: CEPHALEXIN 500 MG CAPSULE PO (08:07)
[2021-12-22] MEDS: CELECOXIB 200 MG CAPSULE PO (08:07)
[2021-12-22] MEDS: SENNA/DOCUSATE SODIUM TABLET 2 TAB PO (08:08)
[2021-12-22 08:30] VITALS: BP 138/65; PULSE 96; RESP 16; TEMP 36.8; O2SAT 100
[2021-12-22 08:40] VITALS: BP 138/65; PULSE 96; RESP 16; TEMP 36.8; O2SAT 100
--- NOTE | 2021-12-22 09:25 | PM.IMCN ---
Assessment and Plan Assessment and plan (1) Arthritis of left hip: Code(s): M16.12 - Unilateral primary osteoarthritis, left hip Status: Acute Assessment and Plan: - Postoperative elective total hip - Stable H&H - No complications - DVT prophylaxis per primary care provider and Orthopedics. (2) Essential (primary) hypertension: Code(s): I10 - Essential (primary) hypertension Status: Acute Assessment and Plan: - Blood pressures were reviewed and they are stable postoperatively. Continue antihypertensives and monitor daily. - Stable for discharge. (3) Type 2 diabetes mellitus: Qualifiers: Diabetes mellitus manager terminal insulin use: without manager terminal use Diabetes mellitus complication status: without complication Qualified Code(s): E11.9 - Type 2 diabetes mellitus without complications Code(s): E11.9 - Type 2 diabetes mellitus without complications Status: Acute Assessment and Plan: - Stable with HgbA1C of 5.5. - No further treatment recommendations at this time. (4) Anxiety: Code(s): F41.9 - Anxiety disorder, unspecified Status: Acute Assessment and Plan: - Continue clonazepam. (5) History of venous thromboembolism: Code(s): Z86.718 - Personal history of other venous thrombosis and embolism Status: Acute Assessment and Plan: - The patient had DVT and pulmonary embolism in March 2021, of felt to be safe enough to be off of anticoagulation for this procedure. DVT prophylaxis deferred to primary service. (6) Nocturia: Code(s): R35.1 - Nocturia Status: Acute Assessment and Plan: - Patient states he gets up almost every hour to urinate at nighttime. It sounds as though he drinks quite a bit of fluid prior to going to bed and we discussed limiting his fluid intake. Given his age she may be developing enlarged prostate and he was told to discuss this with his primary care provider. - No concerns for urinary retention post procedure. UOP reviewed and is good. - Stable for discharge from medical standpoint with follow up PSA with PCP. Additional Plan Thank you for allowing us to participate in this patient's care. Please do not hesitate to contact us with any questions. HPI Data of Consult Consult date: 12/22/21 Requesting Physician: DEMARCO Mcdonough Primary Care Provider: Jas De Los Santos MD Consult Narrative Narrative: Albin Cohn is a 61 year old male with history of arthritis, DVT and pulmonary embolism in summer 2020, diet-controlled diabetes, and hypertension whom the hospitalist service has been consulted for management of his medical conditions postoperatively. He recently underwent an elective left total hip replacement and has had a normal post-operative progression thus far. His blood pressures have been stable post-operatively on his regular home medication dosages, and he has a recent A1C of 5.5 earlier this month since he has discontinued his Metformin. Fasting glucose this AM is in the 120s. His Hgb post-operatively today is 11.5, and he has no overt signs of bleeding identified. He does have history of PE and DVT in March 2021, and DVT prophylaxis for this pt. will be referred to his primary service/Orthopedics as he was deemed safe to be removed from anticoagulation for this elective procedure. The pt. has no other acute complaints or concerns today and no new symptoms to report, so hospitalist service will sign off on him today of any further care. He is primary patient of Orthopedics and we ask them to do Discharge summary as medically he is clear for discharge at this time. Thank you for involving us in the care of your patient. Review of Systems Review of Systems: A full 12 point ROS was performed and is otherwise negative except for what is noted in HPI.
--- NOTE | 2021-12-22 12:49 | PDONCCN ---
[facility] - Date of Consult Date/Time: 12/22/21 12:49 Requesting Physician: DEMARCO Mcdonough Primary Care Provider: Jas De Los Santos MD - Consult Narrative Reason for consult: Hypercoagulable state Narrative: Albin Cohn is a 61 year old male with history of unprovoked PE and DVT diagnosed in March 2021. Patient has a history of hypertension and anxiety/depression. According to the patient he received COVID vaccination 1 month prior to the diagnosis of PE and DVT. He has no personal history of thromboembolic events. There is a family history of blood clot in the brother as well as in the mother who developed blood clot after the back surgery. Patient was last seen in the office couple of months ago. He was on warfarin and recommended to hold warfarin 1 week prior to the surgery. Patient now got admitted to the hospital for left hip surgery which she had done yesterday. Patient have left total hip arthroplasty done on December 21. He is recovering well from the surgery. He has been receiving Lovenox 30 mg subcu q.12 hours since the surgery. He denies any bleeding but does have some bruising in the abdominal wall. He is anxious to go home. Review of Systems - Review of Systems All systems reviewed & are unremarkable except as noted in [facility] and [facility] Medical History: Medical History (Last Reviewed 12/22/21 @ 09:32 by DEMARCO Mcdonough) Anxiety Arthritis Deep vein thrombosis Onset Date: 03/2021 Eczema Essential (primary) hypertension Obstructive sleep apnea Pulmonary embolism Onset Date: 03/2021 Type 2 diabetes mellitus No longer on medication after weight loss. Surgical History: Surgical History (Last Reviewed 12/22/21 @ 09:32 by DEMARCO Mcdonough) History of tonsillectomy History of total left hip arthroplasty Onset Date: 12/21/21 Family History: Family History (Last Reviewed 12/22/21 @ 09:32 by DEMARCO Mcdonough) Father Acute myocardial infarction Age 70 Heart disease Mother Breast cancer Sibling Heart disease Other Depression Hypertension - Social History Social History: Social History (Last Reviewed 12/22/21 @ 09:32 by DEMARCO Mcdonough) Alcohol Use: Alcohol intake: never Substance Use: Substance use: never Substance use type: does not use Others: Spiritual care concerns: No Agree to blood products: Yes Living Arrangements: Living arrangements: alone Smoking Status: Smoking status: Never smoker Second hand tobacco smoke exposure: No Meds Home Medications Medication Instructions Recorded Confirmed Type clonazepam 1 mg tablet 1 mg PO BID 11/02/21 12/21/21 History lisinopril 10 mg tablet 10 mg PO QAM 11/02/21 12/21/21 History cholecalciferol (vitamin D3) 50 mcg PO DAILY 12/02/21 12/21/21 History triamcinolone acetonide 1 applic TOPICAL BID PRN 12/02/21 12/21/21 History acetaminophen 1,000 mg PO Q6HR #90 tablet 12/22/21 Rx apixaban [Eliquis] 2.5 mg PO Q12HR #71 tablet 12/22/21 Rx cephalexin 500 mg PO Q6HR #48 cap 12/22/21 Rx oxycodone 5 mg PO Q4HR #40 tablet 12/22/21 Rx polyethylene glycol 3350 [Miralax] 17 g PO QAM #30 ea 12/22/21 Rx sennosides-docusate sodium 2 tab PO BID #60 tablet 12/22/21 Rx [Senokot-S] Allergies Allergy/AdvReac Type Severity Reaction Status Date / Time No Known Allergies Allergy Unverified 12/21/21 06:03 Results - Labs CBC & Chem 7: 12/22/21 05:23 12/22/21 05:23 Labs: Short CBC 12/22/21 Range/Units 05:23 WBC 8.7 (4.5-10.0) K/mm3 Hgb 11.5 L D (14.0-18.0) g/dL Hct 33.9 L (42.0-52.0) % Plt Count 135 L (150-375) k/mm3 BMP 12/22/21 05:23 Sodium 135 L Potassium 4.5 Chloride 103 Carbon Dioxide 28 BUN 17 Creatinine 1.00 Glucose 127 H Calcium 8.4 Assessment and Plan - Additional Plan Hypercoagulable state with diagnosis of unprovoked PE and DVT in March
[2021-12-22 13:50] VITALS: BP 139/64; PULSE 100; RESP 18; TEMP 36.1; O2SAT 100
== END 2021-12-22 15:22 | disposition home or self-care (01) ==
LOC: ANHSURGERY 05:48 → ANH2MED 13:22
PROVIDERS: Anesthesiology; Orthopaedic Surgery; Physician Assistant Surgical; PCP Family Medicine Adolescent Medicine; Visit Provider Nurse Practitioner Adult Health
PROC: (CPT 27130; principal; 2021-12-21 07:30)
DX: M16.12 Unilateral primary osteoarthritis, left hip (principal); D62 Acute posthemorrhagic anemia; I10 Essential (primary) hypertension; E11.9 Type 2 diabetes mellitus without complications; F41.9 Anxiety disorder, unspecified; R35.1 Nocturia; G47.33 Obstructive sleep apnea (adult) (pediatric); L30.9 Dermatitis, unspecified; Z86.718 Personal history of other venous thrombosis and embolism; Z86.711 Personal history of pulmonary embolism; Z79.01 Long term (current) use of anticoagulants; E66.9 Obesity, unspecified; Z68.36 Body mass index [BMI] 36.0-36.9, adult
CPT/HCPCS: 27130; 36415; 73501; 80048; 80307; 82040; 82948; 83036; 83735; 85025; 85610; 85730; 86850; 86900; 86901; 87070; 93005; 97110; 97116; 97161; 97165; 97530; 97535; A9270; C1776; J0171; J0690; J1100; J1170; J1650; J2250; J2270; J2405; J2704; J2710; J2795; J3010; J3370; J7030; J7120

== ENCOUNTER 2022-01-01 12:05 | Outpatient (CLI) | payer OTHER, SELFPAY ==
--- NOTE | ~2022-01-01 | US_ITS ---
EXAMINATION: US venous doppler [facility] EXAM DATE: 01/01/2022 13:01 INDICATION: Left leg swelling. TECHNIQUE: Multiple grayscale, color flow and Doppler images of the left lower extremity deep venous system were obtained and reviewed. There is no prior study for comparison. FINDINGS: The left common femoral, femoral and profunda veins demonstrate normal color flow, respirat ory variation, augmentation and compressibility. Compressibility, color flow confirmed within the le ft popliteal, posterior tibial, peroneal, and greater saphenous veins. IMPRESSION: 1. No left lower extremity deep venous thrombosis. Reviewed, dictated and finalized at location B.
== END 2022-01-01 12:06 | disposition home or self-care (01) ==
PROVIDERS: PCP Family Medicine Adolescent Medicine; Visit Provider Orthopaedic Surgery
DX: M79.89 Other specified soft tissue disorders (principal)
CPT/HCPCS: 93971

== ENCOUNTER → 2023-03-14 10:29 | Outpatient (CLI) | payer OTHER, SELFPAY ==
--- NOTE | ~2023-03-14 | XR_ITS ---
XR shoulder LT min 2V 03/14/2023 11:27 Indication: Left shoulder pain Procedure: 4 views left shoulder Comparison: No prior studies for comparison. Findings: There is moderate-severe glenohumeral joint osteoarthritis with remodeling of the humeral h ead and glenoid process. No fracture or traumatic malalignment. Mild osteoarthritis of the acromiocla vicular joint. No significant soft tissue abnormality. No foreign bodies. Impression: 1: Polyarticular osteoarthritis of the left shoulder, most advanced at the glenohumeral joint. Reviewed, dictated and finalized at location [] Impression: 1: Polyarticular osteoarthritis of the left shoulder, most advanced at the sadi ohumeral joint.
== END ==
PROVIDERS: PCP Family Medicine Adolescent Medicine; Visit Provider Family Medicine Adolescent Medicine
DX: M19.012 Primary osteoarthritis, left shoulder (principal)
CPT/HCPCS: 73030